=== PATIENT | male | born 1990 | race Caucasian/White ===

== ENCOUNTER 2016-07-17 15:25 | Emergency (ER) | payer OTHER ==
[~2016-07-17] VITALS: Ht 188 cm; Wt 104.7 kg
[~2016-07-17 15:25] MED LIST: OFLO1DRO8 RIGHT EYE; PRED20 PO; VENTAER INH; ZITH250T PO
[2016-07-17 15:36] VITALS: BP 132/92; PULSE 78; RESP 18; TEMP 98.6; O2SAT 100
--- NOTE | 2016-07-17 17:19 | PD ---
HPI Chief Complaint: ENT Complaint Time Seen by Provider: 17:16 Travel History International Travel<30 days: No Contact w/Intl Traveler<30days: No Traveled to known affect area: No History of Present Illness HPI Patient is a 25-year-old male who presents emergency for evaluation of left ear pain. Patient states the ear feels congested when he wakes up in the morning, his hearing is muffled. He denies any fevers or chills. He denies any neck pain or discharge from his ear. He denies any recent illnesses. PFSH Past Medical History Asthma: Yes Diminished Hearing: Yes (left ear x 1.5 weeks (07/14/16)) Respiratory: Yes (ASTHMA) Immunizations Current: Yes Tetanus Vaccination: < 5 Years Influenza Vaccination: No Past Surgical History Surgical History: No Previous Surgery Social History Alcohol Use: No Tobacco Use: Yes (1PPD) Substance Use: Yes (marijuana, socially) Allergies-Medications (Allergen,Severity, Reaction): Coded Allergies: No Known Allergies (Unverified , 07/17/16) Reported Meds & Prescriptions Reported Meds & Active Scripts Active No Active Prescriptions or Reported Medications Review of Systems Except as stated in HPI: all other systems reviewed are Neg HENT: Positive: Earache Physical Exam Narrative GENERAL: Well-nourished, well-developed patient. SKIN: Warm and dry. HEAD: Normocephalic. EARS: Bilateral pinnae appear within normal limits. Bilateral tympanic membranes cannot be visualized due to significant cerumen impaction. EYES: No scleral icterus. No injection or drainage. NECK: Supple, trachea midline. No JVD or lymphadenopathy. CARDIOVASCULAR: Regular rate and rhythm without murmurs, gallops, or rubs. RESPIRATORY: Breath sounds equal bilaterally. No accessory muscle use. GASTROINTESTINAL: Abdomen soft, non-tender, nondistended. MUSCULOSKELETAL: No cyanosis, or edema. BACK: Nontender without obvious deformity. No CVA tenderness. Data Data Last Documented VS Vital Signs Date Time Temp Pulse Resp B/P Pulse Ox O2 Delivery O2 Flow Rate FiO2 07/17/16 15:36 98.6 78 18 132/92 100 Orders Ear Irrigation (07/17/16 17:09) MDM Medical Decision Making Medical Screen Exam Complete: Yes Emergency Medical Condition: Yes Interpretation(s) Vital Signs Date Time Temp Pulse Resp B/P Pulse Ox O2 Delivery O2 Flow Rate FiO2 07/17/16 15:36 98.6 78 18 132/92 100 Differential Diagnosis Otitis media versus otitis externa versus effusion versus cerumen impaction versus other Narrative Course Patient is a 25 year old male who presents to the emergency department for evaluation of left ear pain and muffled hearing. Symptoms have been ongoing for approximately 2 week. Physical examination reveals significant cerumen impaction bilaterally, worse on the left. Ear irrigation ordered, irrigation removed a moderate amount of wax however waxes still in the ear canal up against the tympanic membrane left side. Patient was advised to obtain [id number] Debrox and use as directed. He was further encouraged follow-up with his primary care provider or follow up with an oncology research rn. Patient and significant other was understanding of these instructions. Patient is stable for discharge. Diagnosis Primary Impression: Cerumen impaction Qualified Code: H61.23 - Bilateral impacted cerumen Referrals: Primary Care Physician Patient Instructions: Cerumen Impaction (ED), General Instructions Additional Instructions: Obtain [id number] Debrox and use as directed Follow-up with your primary doctor or ear, nose, throat specialist Return to emergency department for any new or worsening symptoms Med/Other Pt SpecificInfo: No Change to Meds Scripts No Active Prescriptions or Reported Meds Disposition: 01 DISCHARGE HOME Condition: Stable Sadia Palacio Jul 17, 2016 17:19
== END 2016-07-17 17:59 | disposition home or self-care (01) ==
LOC: PHED 15:25 → PHEFT 17:59
DX: H61.23 Impacted cerumen, bilateral (principal); J45.909 Unspecified asthma, uncomplicated; F17.210 Nicotine dependence, cigarettes, uncomplicated
CPT/HCPCS: 99282